=== PATIENT | female | born 1960 | race Caucasian/White ===

== ENCOUNTER 2018-07-12 06:33 | Inpatient (IN) | payer OTHER ==
[~2018-07-12] VITALS: Ht 157.5 cm; Wt 82.1 kg
[2018-07-12] VITALS (11 sets, daily range): BP systolic 104–128; BP diastolic 59–69
[~2018-07-12 06:33] MED LIST: ARMO250T2 PO; ATOR40TA PO; BIOT10004 PO; CALC-838 PO; FLUO40CA49 PO; LURA40TA PO; METH4TAB16 PO; TRIA80OI TP; VALS1TAB52 PO; VILA40TA PO; ZOLP10TA2 PO
[2018-07-12] MEDS ORDERED: CEFAZOLIN SODIUM/DEXTROSE,ISO 50 ML IV ONE (06:47)
[2018-07-12] MEDS ORDERED: oxyCODONE HCL SR 10MG TAB.SR.12H PO ONE (06:47)
[2018-07-12] MEDS ORDERED: CELECOXIB 100 MG CAPSULE ONE (06:47)
[2018-07-12] MEDS ORDERED: ACETAMINOPHEN 325 MG TABLET ONE (06:47)
[2018-07-12] MEDS ORDERED: TRANEXAMIC ACID 3,000 MG in SODIUM CHLORIDE IRRIG SOLUTION 70 ML IR ONE (07:00)
[2018-07-12] MEDS ORDERED: BUPIVACAINE MPF 0.5% W/EPI INJ 30 ML VIAL ONE (08:39)
[2018-07-12] MEDS ORDERED: KETOROLAC TROMETHAMINE INJ 30 MG/ML VIAL ONE (08:39)
[2018-07-12] MEDS ORDERED: BACITRACIN 50000 UNITS/VIAL ONE (08:39)
[2018-07-12] MEDS ORDERED: ROCURONIUM BROMIDE 50 MG/5 ML ONE (08:50)
[2018-07-12] MEDS ORDERED: HYDROMORPHONE INJ 2 MG/ML DISP.SYRIN ONE (08:50)
[2018-07-12] MEDS ORDERED: FENTANYL PF 100MCG/2ML AMPUL ONE (10:47)
[2018-07-12] MEDS ORDERED: ZOFRAN 4mg/2ML IV PRN (11:30)
[2018-07-12] MEDS ORDERED: SENOKOT 8.6 MG TABLET PO PRN (11:30)
[2018-07-12] MEDS ORDERED: HYDROCODONE/APAP 5/325MG 1 EACH TABLET PO PRN (11:30)
[2018-07-12] MEDS ORDERED: COLACE 100 MG CAPSULE PO PRN (11:30)
[2018-07-12] MEDS ORDERED: DULCOLAX 10 MG/SUPP.RECT RC PRN (11:30)
--- NOTE | 2018-07-12 11:30 | NUR ---
MS RN RECEIVED PT FROM OR RECEIVED PT VIA BED FROM OR NURSE PETE. PT IS S/P LEFT TOTAL HIP ARTHROPLASTY. PT SLEEPING BUT AROUSABLE, ALERT AND ORIENTED X3. DENIES N/V, CHEST PAIN, SOB. BREATHING IS EVEN AND UNLABORED ON 2L NC. VS ARE BP: 113/69, HR: 81, R: 16, SP02: 97%, T: 97.9. PT RATES PAIN 8/10 IN THE LOWER BACK, WILL ADMINISTER PAIN MEDICATION ORDERED. DRESSING ON THE LEFT HIP INCISION SITE IS CLEAN, DRY AND INTACT WITHOUT ANY SATURATION AT THIS TIME. ICE PACK AND ABDUCTOR PILLOW IN PLACE. R WRIST #18 G IV IS PATENT, CLEAN, DRY AND INTACT, WITHOUT REDNESS OR SWELLING. MCKINNEY CATHETER IS NOTED TO BE DRAINING CLEAR, YELLOW URINE, SCD ARE ON AND FUNCTIONAL. JULIA IS AT THE BEDSIDE. ORIENTED PT AND TO UNIT, INFORMED BOTH TO CALL FOR ASSISTANCE BEFORE GETTING UP. ALL NEEDS ATTENDED TO. BED IS LOCKED AND IN LOWEST POSITION, SIDE RAILS UP X2, CALL LIGHT IS WITHIN REACH. WILL CONTINUE TO MONITOR.
[2018-07-12] MEDS ORDERED: DOCUSATE SODIUM 250 MG CAPSULE PO PRN (12:00)
[2018-07-12] MEDS ORDERED: ERGO400C PO (12:12)
[2018-07-12] MEDS: HYDROMORPHONE 1 MG/1 ML DISP.SYRIN IV PRN ×2 (12:13→15:20)
[2018-07-12] MEDS: IV LR 1000 ML 1,000 ML IV PRN (12:24)
--- NOTE | 2018-07-12 13:55 | NUR ---
MS RN PT UP WITH PT PT UP WITH PT AT THIS TIME. RECEIVED DILAUDID 1 MG IV AT 1213. PT RATES PAIN 3/10 PRIOR TO WORKING WITH PT. WILL CONTINUE TO MONITOR.
--- NOTE | 2018-07-12 14:05 | NUR ---
MS RN PT PT ABLE TO STAND WITH PT ASSIST, STATED SHE FELT "DIZZY". PT WAS ASSISTED BACK TO BED. VS WNL, PT DENIES N/V OR SOB AT THIS TIME. WILL CONTINUE TO MONITOR.
[2018-07-12 15:57] LABS: CREATININE 0.8 mg/dL (0.6-1.3)
[2018-07-12 16:03] LABS: INR 0.98 (0.87-1.13)
[2018-07-12] MEDS: RIVAROXABAN 10 MG TABLET PO SCH (17:23)
[2018-07-12] MEDS: ANCEF 1 G in IV D5W 50 ML IV SCH (17:24)
--- NOTE | 2018-07-12 18:10 | NUR ---
MS [place] PT ROOM CHANGE PT MOVED FROM ROOM 316-1 TO 315-1. ALL BELONGS ACCOUNTED FOR.
--- NOTE | 2018-07-12 18:19 | NUR ---
MS RN CLOSING NOTE PT IN BED, SLEEPING AND EASILY AROUSABLE. ALERT AND ORIENTED X3, JULIA IS AT THE BEDSIDE. PT DENIES N/V, CHEST PAIN, SOB AT THIS TIME. PT RATES PAIN 6/10 AT THE LEFT HIP. 2 TABLETS OF NORCO 5-325 ADMINISTERED ORDERED. R WRIST #18G IV IS INFUSING LR @ 75ML/HR WITHOUT REDNESS OR SWELLING. LEFT HIP DRESSING IS CLEAN, DRY, AND INTACT AT THIS TIME. MCKINNEY CATHETER IS NOTED TO BE DRAINING CLEAR, YELLOW URINE. BED IS LOCKED AND IN LOWEST POSITION, SIDE RAILS UP X2, CALL LIGHT IS WITHIN REACH. WILL ENDORSE TO LOFT WORKER RN FOR CONTINUITY OF CARE.
--- NOTE | 2018-07-12 20:00 | NUR ---
MS/RN OPENING NOTES RECEIVED PATIENT IN BED, AWAKE, ALERT, OBSERVED GRIMACE AND GUARDING INFORMED PAIN MEDICATION ORDERED PER MD SQ TO BE GIVEN AND TO RECHECK PAIN MEDICATION WITH BREAK THROUGH PAIN BY MOUTH AND WILL KEEP PATIENT PAIN FREE PER PAIN MEDICATION WILL FOLLOW UP. PATIENT TOLERATED PROCEDURE, PROVIDED COMFORT MEASURES, ICE COLD WATER AND COOLING MEASURES.
[2018-07-12] MEDS ORDERED: HYDROMORPHONE INJ 2 MG/ML DISP.SYRIN SQ ONE (20:01)
[2018-07-12] MEDS: FAMOTIDINE (20 MG) 20 MG TABLET PO SCH (20:21)
[2018-07-12] MEDS ORDERED: PROMETHAZINE HCL 50 MG/ML AMPUL IM PRN (20:30)
[2018-07-12] MEDS ORDERED: ONDANSETRON HCL/PF 4 MG/2 ML VIAL IV PRN (20:30)
[2018-07-12] MEDS ORDERED: diphenhydrAMINE HCL 25 MG CAPSULE PO PRN (20:30)
[2018-07-12] MEDS: TYLENOL 650 MG TABLET PO PRN (21:18)
[2018-07-12] MEDS ORDERED: AMBIEN 5 MG TABLET PO PRN (22:00)
[2018-07-12] MEDS: MAG HYDROX/AL HYDROX/SIMETH 30 ML UDC PO PRN (22:58)
[2018-07-12] MEDS: oxyCODONE IR immediate release 5 MG PO PRN (22:59)
--- NOTE | 2018-07-12 22:59 | NUR ---
ms/rn notes patient reported abdominal discomfort, maalox was given, reported pain in surgery site and oxy 10 po given, level of 3/10 pain will monitor effectiveness.
[2018-07-13] MEDS: TYLENOL 650 MG TABLET PO PRN (01:17)
[2018-07-13] MEDS: oxyCODONE IR immediate release 5 MG PO PRN ×5 (01:41→23:02)
--- NOTE | 2018-07-13 01:41 | NUR ---
MS/RN NOTES PATIENT REPORTED MODERATE PAIN IN LEFT HIP SITE OF SURGERY NEEDED MEDICATION PER MD ORDER PROVIDED AND WILL MONITOR PAIN RELIEF
[2018-07-13] MEDS: ANCEF 1 G in IV D5W 50 ML IV SCH (02:02)
[2018-07-13] MEDS: IV LR 1000 ML 1,000 ML IV PRN ×2 (02:03→20:43)
--- NOTE | 2018-07-13 02:30 | NUR ---
MS/RN NOTES PATIENT REPORTED SEVERE PAIN IN LEFT HIP SITE, AT 06/26 WILL LENA MEDICATION FOR SEVERE PAIN VIA SUB Q. CALL LIGHTS TIFFANIE DOVE.
--- NOTE | 2018-07-13 02:38 | NUR ---
MS/RN NOTES B/P RECHECK AT 120/69, PULSE 63, FOR REPORTED SEVERE PAIN, WILL ADMINISTER SQ DILAUDID FOR NEEDED SEVERE PAIN, PATIENT ALERT, ORIENTED
[2018-07-13] MEDS: HYDROMORPHONE INJ 2 MG/ML DISP.SYRIN SQ PRN ×3 (02:42→18:44)
--- NOTE | 2018-07-13 06:30 | NUR ---
315-1 MS/RN NOTES PATIENT ABLE TO SLEEP ALEAST 5 TO 6 HOURS,ALERT, ORIENTED ON PAIN MANAGEMENT MONITORIG/CALL LIGHTS WITHIN REACH, BED IN LOCK POSITION
--- NOTE | 2018-07-13 06:35 | NUR ---
MS/RN NOTES PATIENT RESTING COMFORTABLY IN BED, REFUSED TO BE REPOSITIONED, REPORTED IN COMFORTABLE POSITION AND BVERBALIZED WILL COOPERTAE AND PARTICIPATE WITH PHYSICAL THERAPY,
--- NOTE | 2018-07-13 07:00 | NUR ---
MS RN OPENING NOTE RECEIVED PT IN BED, ALERT AND ORIENTED X3. DENIES N/V, CHEST PAIN, SOB AT THIS TIME. RATES PAIN IN THE LEFT HIP 4/10, DOES NOT WANT PAIN MEDICATION AT THIS TIME. BREATHING IS EVEN AND UNLABORED ON 2 L NC. R WRIST #18G IV IS INFUSING LR @ 125 ML/HR WITHOUT REDNESS OR SWELLING. MCKINNEY CATHETER NOTED TO BE DRAINING CLEAR, YELLOW URINE. SURGICAL DRESSING IS INTACT WITH SCANT SATURATION NOTED. ABDUCTOR PILLOW IN PLACE. ALL NEEDS ATTENDED TO, BED IS LOCKED AND IN LOWEST POSITION, SIDE RAILS UP X2, CALL LIGHT IS WITHIN REACH. WILL CONTINUE TO MONITOR.
[2018-07-13 08:00] VITALS: BP 105/69
[2018-07-13] MEDS ORDERED: ATORVASTATIN 40 MG TABLET PO SCH (09:00)
[2018-07-13] MEDS: VALSARTAN 80 MG TABLET PO SCH (09:00)
[2018-07-13] MEDS: FAMOTIDINE (20 MG) 20 MG TABLET PO SCH ×2 (09:10→21:25)
[2018-07-13] MEDS: FLUOXETINE HCL 20 MG CAPSULE PO SCH (09:10)
[2018-07-13] MEDS: HYDROCHLOROTHIAZIDE 25 MG TABLET PO SCH (09:11)
[2018-07-13 09:36] LABS: CALCIUM, SERUM 8.7 mg/dL (8.5-10.1); CREATININE 0.8 mg/dL (0.6-1.3); MAGNESIUM 1.8 mg/dL (1.8-2.4); POTASSIUM 3.3 mmol/L (3.5-5.1)
[2018-07-13 09:52] LABS: HEMATOCRIT 30 % (33-45); HEMOGLOBIN 10.5 g/dL (11.5-14.8); MEAN CORPUSCULAR VOLUME 84 fL (82-100); RED BLOOD CELL COUNT(AUTO) 3.64 MIL/uL (4.0-5.2); WHITE BLOOD COUNT (AUTO) 6.1 K/uL (4.3-11.0)
[2018-07-13 09:53] LABS: BASOPHILS % (AUTO) 0.6 % (0.0-2.0); EOSINOPHILS % (AUTO) 0.7 % (0.0-6.0); LYMPHOCYTES # (AUTO) 1.7 /CMM (0.8-4.8); MEAN CORPUSCULAR HGB CONC 35 g/dl (31.0-36.0); MONOCYTES # (AUTO) 0.5 /CMM (0.1-1.30); MONOCYTES % (AUTO) 7.6 % (2.0-12.0); NEUTROPHILS # (AUTO) 3.9 /CMM (1.8-8.9); NEUTROPHILS % (AUTO) 64.1 % (43.0-81.0); PLATELET COUNT (AUTO) 199 /CMM (150-450); RDW COEFFICIENT OF VARIATION 13.9 (11.5-15.0)
--- NOTE | 2018-07-13 10:15 | NUR ---
MS RN PT UP WITH PT PT UP WITH PT, UNABLE TO AMBULATE DUE TO FEELING "DIZZY". PT PROVIDED IN BED EXERCISES AND WILL COME BACK LATER. VS WNL. WILL CONTINUE TO MONITOR.
[2018-07-13] MEDS ORDERED: HYDROMORPHONE INJ 2 MG/ML DISP.SYRIN SQ ONE (13:02)
--- NOTE | 2018-07-13 14:15 | NUR ---
MS RN PT UP WITH PT PT UP WITH PT. UNABLE TO AMBULATE DUE TO FEELING "DIZZY" AND "SCARED OF FALLING". ENCOURAGED PT TO AMBULATE, ABLE TO DO TOE TOUCH EXERCISES. WILL CONTINUE TO MONITOR.
[2018-07-13] MEDS: MAG HYDROX/AL HYDROX/SIMETH 30 ML UDC PO PRN (14:42)
[2018-07-13 16:00] VITALS: BP 125/58
[2018-07-13] MEDS: RIVAROXABAN 10 MG TABLET PO SCH (16:22)
[2018-07-13] MEDS ORDERED: POTASSIUM CHLORIDE 20 MEQ TAB.PRT.SR PO ONE (16:30)
--- NOTE | 2018-07-13 18:42 | NUR ---
MS RN CLOSING NOTE PT IN BED, ALERT AND ORIENTED X 4, IS AT THE BEDSIDE. DENIES N/V, CHEST PAIN, SOB. BREATHING IS EVEN AND UNLABORED ON ROOM AIR, NEUROVASCULAR STATUS IS INTACT. PT RATES PAIN 8/10 IN THE LEFT HIP. WILL ADMINISTER DILAUDID 1 MG SUBQ ORDERED. DRESSING IS INTACT WITH SCANT SATURATION R WRIST #18G IV IS INFUSING LR @ 125 ML/HR WITHOUT REDNESS OR SWELLING. MCKINNEY NOTED TO BE DRAINING CLEAR, YELLOW URINE. ABDUCTOR PILLOW IS IN PLACE, SCDS ARE ON. D/C MCKINNEY AND FIRST DRESSING CHANGE BY MD IS SCHEDULED FOR TOMORROW, 07/14/18. BED IS LOCKED AND IN LOWEST POSITION, SIDE RAILS UP X2, CALL LIGHT AND POSSESSIONS ARE WITHIN REACH. WILL ENDORSE TO BUSINESS DEVELOPMENT CONSULTANT RN FOR CONTINUITY OF CARE.
--- NOTE | 2018-07-13 19:30 | NUR ---
RECEIVED PATIENT IN BED AWAKE, AO X 3, ABLE TO MAKE NEEDS KNOWN. NO ACUTE DISTRESS NOTED. MONITORED FOR PAIN. IV SITE PATENT, INTACT; IVF INFUSING ORDERED. LEFT HIP DRESSING INTACT. ABDUCTOR PILLOW IN PLACE BETWEEN LEGS. SAFETY REMINDERS GIVEN. ON LOW BED WITH BILATERAL UPPER SIDE RAILS UP. CALL WALLACE WITHIN EASY REACH. WILL CONTINUE TO MONITOR.
[2018-07-13 20:00] VITALS: BP 116/62
[2018-07-14] MEDS: oxyCODONE IR immediate release 5 MG PO PRN ×3 (04:52→15:47)
[2018-07-14] MEDS: IV LR 1000 ML 1,000 ML IV PRN ×3 (05:54→23:54)
--- NOTE | 2018-07-14 06:06 | NUR ---
PATIENT ASLEEP, EASILY AROUSABLE. RESPIRATIONS EVEN. NO SIGNS OF PAIN NOTED. DUE MEDS GIVEN WITH NO ASE NOTED. IVF INFUSING ORDERED. NEEDS ATTENDED. ABDUCTOR PILLOW IN PLACE. SAFETY PRECAUTIONS AND COMFORT MEASURES IN PLACE. WILL GIVE REPORT TO DAY SHIFT FOR CONTINUITY OF CARE.
--- NOTE | 2018-07-14 07:19 | NUR ---
MS RN OPENING NOTES RECEIVED PT LAYING IN BED WITH HOB SLIGHTLY ELEVATED, SLEEPING COMFORTABLY. PT IS EASILY AROUSABLE, A/O X4. RESPIRATIONS ARE EVEN AND UNLABORED, NOT IN ANY ACUTE DISTRESS NOTED. PT DENIES SOB, N/V. IV SITE TO R WRIST INTACT, NO INFILTRATION NOTED. DRESSING KEPT CLEAN AND DRY. IV FLUIDS INFUSING AT 125ML/HR, TOLERATING WELL. ABDUCTOR PILLOW IN PLACE WHILE IN BED. SAFETY MEASURES ARE IN PLACE. INSTRUCTED PT TO USE CALL LIGHT WHEN ASSISTANCE IS NEEDED, CALL LIGHT IS LEFT WITHIN REACH. WILL CONTINUE TO MONITOR THROUGHOUT SHIFT FOR CONTINUITY OF CARE.
[2018-07-14 08:00] VITALS: BP 118/70
[2018-07-14] MEDS: FLUOXETINE HCL 20 MG CAPSULE PO SCH (08:23)
[2018-07-14] MEDS: FAMOTIDINE (20 MG) 20 MG TABLET PO SCH ×2 (08:23→21:23)
[2018-07-14] MEDS: HYDROCHLOROTHIAZIDE 25 MG TABLET PO SCH (08:24)
[2018-07-14] MEDS: VALSARTAN 80 MG TABLET PO SCH (08:25)
[2018-07-14] MEDS: MAG HYDROX/AL HYDROX/SIMETH 30 ML UDC PO PRN (08:27)
--- NOTE | 2018-07-14 10:41 | NUR ---
MS RN NOTE-- REMOVED MCKINNEY CATHETER PER ORDERS, PT TOLERATED WELL. WILL CONTINUE TO MONITOR THROUGHOUT SHIFT. REMINDED PT TO USE CALL LIGHT WHEN ASSISTANCE IS NEEDED TO BSC.
--- NOTE | 2018-07-14 12:27 | NUR ---
MS RN NOTE-- PT C/O LEFT LEG "FEELING TWISTED." PER OT, SHE SAID THE SAME THING TO THEM. ASSISTED PT IN REPOSITIONING WITH THE HIP ABDUCTOR PILLOW. NOTIFIED SHANNAN HEREDIA IF XRAY IS NECESSARY. PER YAN, "NOT NECESSARY AT THIS TIME." WILL CONTINUE TO MONITOR.
[2018-07-14] MEDS: HYDROMORPHONE INJ 2 MG/ML DISP.SYRIN SQ PRN ×3 (12:56→20:37)
[2018-07-14 16:00] VITALS: BP 124/82
--- NOTE | 2018-07-14 16:22 | NUR ---
MS RN NOTES-- PT REFUSES TO WEAR DVT PUMPS. EXPLAINED THE IMPORTANCE OF DVT PUMPS, PT STILL NOTED WITH REFUSAL. ENCOURAGED PT TO CONTINUE PT/OT FOR MOBILITY AND STRENGTHENING.
[2018-07-14] MEDS: RIVAROXABAN 10 MG TABLET PO SCH (17:10)
--- NOTE | 2018-07-14 18:21 | NUR ---
MS RN CLOSING NOTES ALL DUE MEDS GIVEN, NEEDS MET AND ANTICIPATED. PT REMAINS A/O X4, AFEBRILE. RESPIRATIONS ARE EVEN AND UNLABORED, NOT IN ANY ACUTE DISTRESS NOTED. PT DENIES ANY CHEST PAIN, N/V, SOB. PUPILS ARE REACTIVE TO LIGHT, BILATERAL HAND COLLAR POINTER ARE STRONG AND EQUAL. PT ABLE TO MOVE TOES. PT REFUSES DVT PUMPS AT THIS TIME, EXPLAINED AGAIN THE IMPORTANCE TO HAVE THEM ON, PT STILL NOTED WITH REFUSAL. PT CURRENTLY ON XARELTO. NEW PERIPHERAL IV TO RFA G22 INTACT, NO INFILTRATION NOTED. DRESSING KEPT CLEAN AND DRY. IV FLUIDS RUNNING AT 125ML/HR, TOLERATING WELL. BEDSIDE COMMODE AT BEDSIDE. SAFETY MEASURES ARE IN PLACE. BED IS IN ITS LOWEST AND LOCKED POSITION. REMINDED PT TO USE CALL LIGHT WHEN ASSISTANCE IS NEEDED, CALL LIGHT IS LEFT WITHIN REACH. WILL ENDORSE TO NEXT SHIFT FOR CONTINUITY OF CARE.
--- NOTE | 2018-07-14 19:30 | NUR ---
MSRN EYES CLOSED, IVF INFUSING WELL. TO CONTINUE.
[2018-07-14 20:00] VITALS: BP 147/73
--- NOTE | 2018-07-14 20:40 | NUR ---
MSRN VERBALIZES SEVERED POST OP PAIN LEFT HIP, SITE WITH DRESSING D/I, WITH ICE PACK. NAUSEATED, NO EMESIS. ZOFRAN 4 MG IVP ADMINISTERED . DILAUDED 1MG IVP GIVEN FEW MINUTES AFTER, REPOSITIONED. PRESENT IVF INFUSING WELL VIA RIGHT FOREARM. KEPT COMFORTABLE, ALL NEEDS ATTENDED.
[2018-07-14] MEDS ORDERED: ATORVASTATIN 40 MG TABLET PO SCH (21:00)
--- NOTE | 2018-07-14 21:27 | NUR ---
MSRN DUE MEDS ADMINISTERED, NO COMPLAINTS MADE.
[2018-07-15] MEDS: MAG HYDROX/AL HYDROX/SIMETH 30 ML UDC PO PRN ×2 (00:46→08:27)
--- NOTE | 2018-07-15 01:58 | NUR ---
MS RN OPENING NOTE RECEIVE REPORT FROM NIGHT RN/PATIENT AWAKE IN BED, A/O X4 STABLE. NO SOB OR DISTRESS NOTED, CALL LIGHT WITHIN REACH. SAFETY MEASURES IMPLEMENTED. WILL CONTINUE TO MONITOR THROUGHOUT SHIFT.
--- NOTE | 2018-07-15 02:02 | NUR ---
MSRN REPORT GIVEN TO RN FOR CONTINUITY OF CARE
[2018-07-15] MEDS: oxyCODONE IR immediate release 5 MG PO PRN ×3 (05:24→17:50)
--- NOTE | 2018-07-15 06:37 | NUR ---
MS RN CLOSING NOTES ASLEEP AND EASILY AWAKEN, TOLERATING ROOM AIR 98%,STABLE, NOT IN DISTRESS. RESPIRATION EVEN AND UNLABORED. KEPT CLEAN AND DRY AND COMFORTABLE, ALL NURSING CARE RENDERED. NEEDS ATTENDED AND ANTICIPATED. NO COMPLAIN OF PAIN AT THIS TIME. L HIP INCISION DRESSING CLEAN AND INTACT, ON LOW BED AT ALL TIMES TO ENSURE SAFETY. SAFE HAZARD FREE ENVIRONMENT PROVIDED. CALL LIGHT WITHIN EASY TO REACH. WILL ENDORSE NEXT SHIFT CONTINUITY OF CARE.
--- NOTE | 2018-07-15 07:21 | NUR ---
MS RN OPENING NOTES PATIENT RECEIVED AWAKE IN BED IN NO ACUTE SIGNS OF DISTRESS. A/O X4. ABLE TO MAKE NEEDS KNOWN, NO C/O PAIN OR DISCOMFORTS VOICED AT THIS TIME. LEFT HIP INCISION SITE DRESSING C/D/I. ON ROOM AIR, TOLERATING WELL WITH NO SOB NOTED. IV ACCESS ON RFA INTACT AND PATENT, IVF OF LR @ 125 ML/HR INFUSING, NO S/S OF INFILTRATIONS NOTED. BED LOCKED AND IN LOWEST POSITION WITH SIDE-RAILS UP X2. CALL LIGHT IN REACH. WILL CONTINUE TO MONITOR.
[2018-07-15 08:00] VITALS: BP 122/74
[2018-07-15] MEDS: FAMOTIDINE (20 MG) 20 MG TABLET PO SCH (08:20)
[2018-07-15] MEDS: FLUOXETINE HCL 20 MG CAPSULE PO SCH (08:20)
[2018-07-15] MEDS: VALSARTAN 80 MG TABLET PO SCH (08:20)
[2018-07-15] MEDS: HYDROCHLOROTHIAZIDE 25 MG TABLET PO SCH (08:21)
--- NOTE | 2018-07-15 13:45 | NUR ---
RN NOTES/ PAIN MANAGEMENT PATIENT C/O PAIN ON HER RIGHT HIP AFTER OOB FROM BED TO BSC WITH SCALE OF 6/10. PRN OXY IR 15MG GIVEN ORDERED. WILL CONTINUE TO MONITOR.
[2018-07-15 16:00] VITALS: BP 114/70
[2018-07-15] MEDS ORDERED: RIVA10TA PO (16:43)
[2018-07-15] MEDS: RIVAROXABAN 10 MG TABLET PO SCH (17:25)
--- NOTE | 2018-07-15 17:51 | NUR ---
RN NOTES/ PAIN MANAGEMENT PATIENT C/O PAIN ON HER RIGHT HIP WITH SCALE OF 7/10. PRN OXY IR 15MG GIVEN AT 1750. WILL CONTINUE TO MONITOR.
--- NOTE | 2018-07-15 18:21 | NUR ---
RN NOTES PATIENT FOR DISCHARGE TONIGHT TO [facility]. CALLED AND REPORT GIVEN TO NURSE GEE. PT CALLED HER AND INFORMED OF HER TRANSF[facility] AT [facility].
--- NOTE | 2018-07-15 19:23 | NUR ---
MS RN CLOSING NOTES PATIENT IN BED AWAKE AND LYING AT MODERATE HIGH BACKREST POSITION. A/O X4. ABLE TO MAKE NEEDS KNOWN. LEFT HIP INCISION SITE DRESSING C/D/I. ALL NEEDS AND CARE ATTENDED WELL. ON ROOM AIR, TOLERATING WELL WITH NO SOB NOTED. IV ACCESS ON RFA INTACT AND PATENT, FLUSHES WELL. ALL SAFETY MEASURES KEPT IN PLACE. BED LOCKED AND IN LOWEST POSITION WITH SIDE-RAILS UP X2. CALL LIGHT IN REACH. PT FOR DISCHARGED TO [facility], PICK-UP TIME IS 1999. ENDORSED TO CRYSTALIZER TENDER NURSE.
--- NOTE | 2018-07-15 19:30 | NUR ---
RN INITIAL NOTES Received patient laying in bed, alert, oriented x 4. Breathing even and unlabored. Not in any distress. No complaints as of this time. Patient for discharge. As per morning RN, report already given to [facility]. A/W ambulance.
--- NOTE | 2018-07-15 20:50 | NUR ---
RN NOTES Patient picked up by [facility] people, discharged to [facility]. Heplock and arm band taken out. Discharge papers given to [facility] personnel.
== END 2018-07-15 20:50 | DRG 470 ==
LOC: DS 06:33 → MED 10:31
PROVIDERS: ADMIT Specialist; ATTEND Hospitalist
PROC: 0SRB0JZ Replacement of Left Hip Joint with Synthetic Substitute, Open Approach (ICD-10-PCS; principal; 2018-07-12 10:30)
DX: M16.12 Unilateral primary osteoarthritis, left hip (principal); I10 Essential (primary) hypertension; E78.5 Hyperlipidemia, unspecified; E66.9 Obesity, unspecified; E87.6 Hypokalemia; F32.9 Major depressive disorder, single episode, unspecified; G47.00 Insomnia, unspecified; Z96.651 Presence of right artificial knee joint; Z68.33 Body mass index [BMI] 33.0-33.9, adult
CPT/HCPCS: 36415; 80048-TC; 82565-TC; 83735-TC; 84100-TC; 84520-TC; 85025-TC; 85027-TC; 85610-TC; 86850-TC; 86921-TC; 87081-TC; 97110-TC; 97116-TC; 97530-TC; A4217; A6209; A6402; J0690; J1100; J1170; J1885; J2405; J2550; J2704; J2710; J3010; J3490; J7060; J7120; Z7610

== ENCOUNTER 2018-07-19 20:27 | Inpatient (IN) | payer OTHER ==
[~2018-07-19] VITALS: Ht 157.5 cm; Wt 86.2 kg
[~2018-07-19 20:27] MED LIST changes: -CALC-838 PO; +ERGO400C PO; -METH4TAB16 PO; +RIVA10TA PO; -TRIA80OI TP; -VILA40TA PO
--- NOTE | 2018-07-19 20:27 | NUR ---
ALISSON FROM [facility] FOR LEFT HIP DISCOMFORT. PER PT, DR CELESTE DID SX AND IS AWARE OF TRANSFER OF PATIENT TO THIS FACILITY. VSS NO ACUTE DISTRESS AT THIS TIME. PT IS ALERT AND ORIENTED X4 ABLE TO MAKE NEEDS KNOWN. WILL CONTINUE TO MONITOR FOR ANY CHANGES DURING THE SHIFT.
--- NOTE | 2018-07-19 20:28 | NUR ---
ER MD PATEL AT BEDSIDE FOR EVAL
--- NOTE | 2018-07-19 21:08 | NUR ---
NURSING INSTRUCTOR AT BEDSIDE
--- NOTE | 2018-07-19 21:08 | NUR ---
BLOOD SENT TO LAB WITH [facility] LIGHT
[2018-07-19 21:10] LABS: BASOPHILS # (AUTO) 0.1 /CMM (0.0-0.2); BASOPHILS % (AUTO) 1.1 % (0.0-2.0); EOSINOPHILS % (AUTO) 1.9 % (0.0-6.0); HEMATOCRIT 32 % (33-45); HEMOGLOBIN 10.9 g/dL (11.5-14.8); LYMPHOCYTES # (AUTO) 2.2 /CMM (0.8-4.8); LYMPHOCYTES % (AUTO) 24.1 % (20.0-44.0); MEAN CORPUSCULAR HGB CONC 34 g/dl (31.0-36.0); MEAN CORPUSCULAR VOLUME 82 fL (82-100); MONOCYTES # (AUTO) 0.7 /CMM (0.1-1.30); MONOCYTES % (AUTO) 7.5 % (2.0-12.0); NEUTROPHILS % (AUTO) 65.4 % (43.0-81.0); PLATELET COUNT (AUTO) 349 /CMM (150-450); RDW COEFFICIENT OF VARIATION 12.8 (11.5-15.0); RED BLOOD CELL COUNT(AUTO) 3.85 MIL/uL (4.0-5.2); WHITE BLOOD COUNT (AUTO) 9.2 K/uL (4.3-11.0)
[2018-07-19] MEDS ORDERED: PROPOFOL 20 ML IV ONE (21:12)
[2018-07-19 21:33] LABS: CALCIUM, SERUM 9.6 mg/dL (8.5-10.1); CREATININE 0.7 mg/dL (0.6-1.3); POTASSIUM 3.5 mmol/L (3.5-5.1)
[2018-07-19 21:34] LABS: INR 0.98 (0.87-1.13)
--- NOTE | 2018-07-19 21:42 | NUR ---
ER MD PATEL PREPARING FOR REDUCTION OF LEFT HIP. AWAITING TEAM FOR FINAL PREP
--- NOTE | 2018-07-19 21:55 | NUR ---
PRE REDUCTION VITALS 135/82 72 97% 20R
--- NOTE | 2018-07-19 21:55 | NUR ---
ER MD PATEL, RT, RN LACEY, JENNY BONNER AT BEDSIDE FOR REDUCTION OF LEFT HIP
--- NOTE | 2018-07-19 21:56 | NUR ---
100MG IVP MARYURI BY JENNY TRIANA 72 100% 22R 137/69 Addendum: 07/19/18 at 2227 by ELIANA MELBA
--- NOTE | 2018-07-19 22:00 | NUR ---
30MG DIPRIVAN IVP BY JENNY PATEL
--- NOTE | 2018-07-19 22:01 | NUR ---
INTRA PROCEDURE VITALS 66 99% 120/85 22R
--- NOTE | 2018-07-19 22:01 | NUR ---
20MG DIPRIVAN IVP BY JENNY PATEL
--- NOTE | 2018-07-19 22:04 | NUR ---
20MG IVP DIPRIVAN GIVEN BY ER MD PATEL VITALS 66 100% 13R 111/65
--- NOTE | 2018-07-19 22:06 | NUR ---
POST PROCEDURE VITALS 70 100% 114/66 R17
[2018-07-19] MEDS ORDERED: HYDROCODONE/APAP 5/325MG 1 EACH TABLET ONE (22:33)
[2018-07-19] MEDS ORDERED: PROPOFOL 200 MG/20 ML VIAL IV ONE (23:00)
[2018-07-19] MEDS ORDERED: HYDROCODONE/APAP 5/325MG 1 EACH TABLET PO STA (23:12)
[2018-07-19 23:15] VITALS: BP 127/76
[2018-07-19 23:30] VITALS: BP 127/76
--- NOTE | 2018-07-19 23:30 | NUR ---
MS BOBBIN HANDLER NOTES RECEIVED FROM ER PER MARIANA,A/O X4 ACCOMPANIED BY UNDER THE SERVICE OF DR WOMACK,DX: DISLOCATED FRACTURE.S/P CLOSED REDUCTION LEFT HIP IN ER,BUT UNABLE TO FIX IT.PER SHE WAS HERE TWO WEEKS AGO FOR HIP REPLACEMENT AND [facility].WHILE ON REHAB,SHE"S EXPERIENCING CONTINUOS HIP DISCOMFORTS AND THATS THE REASON SHE WAS BROUGHT HERE.NPO ORDERED.BED ON LOWEST POSITION AND LOCKED.CALL LIGHT IN REACH,NEEDS ANTICIPATED.
[2018-07-20] MEDS ORDERED: MAG HYDROX/AL HYDROX/SIMETH 30 ML UDC PO PRN
[2018-07-20] MEDS ORDERED: Z GUARD REMEDY 2 OZ OINT TP PRN
[2018-07-20] MEDS ORDERED: MAGNESIUM HYDROXIDE 30 ML UDC PO PRN
[2018-07-20] MEDS ORDERED: ONDANSETRON HCL/PF 4 MG/2 ML VIAL IVP PRN
[2018-07-20] MEDS ORDERED: ACETAMINOPHEN 325 MG TABLET PO PRN
[2018-07-20] MEDS ORDERED: MORPHINE SULFATE INJ 2 MG/ML DISP.SYRIN IV PRN
[2018-07-20] MEDS: MORPHINE SULFATE INJ 4 MG/ML DISP.SYRIN IV PRN ×5 (00:30→19:51)
--- NOTE | 2018-07-20 00:30 | NUR ---
MS RN NOTES PAIN MANAGEMENT C/O PAIN LEFT HIP 8/10 ON PAIN SCALE,MEDICATED WITH MORPHINE 2MG IV ORDERED
[2018-07-20] MEDS: IV D5/0.45 NACL 1,000 ML IV PRN ×2 (00:37→16:49)
--- NOTE | 2018-07-20 00:37 | NUR ---
MS RN NOTES STARTED ON IVF D5 1/2 NS AT 75ML/HR RATE ORDERED
--- NOTE | 2018-07-20 04:15 | NUR ---
MS RN NOTES REFUSED MCKINNEY INSERTION.SHE WANTS IT IN OPERATING ROOM WHEN SHE'S KNOCK OUT
--- NOTE | 2018-07-20 04:22 | NUR ---
MS RN NOTES PAIN MANAGEMENT AWAKE,C/O LEFT HIP PAIN 8/10 ON PAIN SCALE.MORPHINE 2MG IV GIVEN ORDERED
--- NOTE | 2018-07-20 05:02 | NUR ---
MS TINOCO NOTES REFUSED MCKINNEY INSERTION.SHE WANTS IT IN OR WHEN SHE'S KNOCK OUT Addendum: 07/20/18 at 0503 by JERAD ROSS RN Amended: Links added.
--- NOTE | 2018-07-20 06:16 | NUR ---
MS RN NOTES KEPT NPO AFTER MIDNIGHT.CONSENT SIGNED FOR CLOSED REDUCTION OF LEFT TOTAL HIP.IVF REMAINS PATENT.IN NO ACUTE DISTRESS.WILL ENDORSE TO DAY NURSE FOR AKUA.
[2018-07-20 07:37] LABS: BASOPHILS % (AUTO) 0.4 % (0.0-2.0); EOSINOPHILS % (AUTO) 1.7 % (0.0-6.0); HEMATOCRIT 30 % (33-45); HEMOGLOBIN 9.8 g/dL (11.5-14.8); LYMPHOCYTES # (AUTO) 1.7 /CMM (0.8-4.8); LYMPHOCYTES % (AUTO) 18.2 % (20.0-44.0); MEAN CORPUSCULAR HGB CONC 32 g/dl (31.0-36.0); MEAN CORPUSCULAR VOLUME 85 fL (82-100); MONOCYTES # (AUTO) 0.7 /CMM (0.1-1.30); NEUTROPHILS # (AUTO) 6.7 /CMM (1.8-8.9); NEUTROPHILS % (AUTO) 71.7 % (43.0-81.0); PLATELET COUNT (AUTO) 320 /CMM (150-450); RDW COEFFICIENT OF VARIATION 13.9 (11.5-15.0); RED BLOOD CELL COUNT(AUTO) 3.56 MIL/uL (4.0-5.2); WHITE BLOOD COUNT (AUTO) 9.3 K/uL (4.3-11.0)
--- NOTE | 2018-07-20 07:37 | NUR ---
MS RN OPENING NOTES RECEIVED PT FROM NIGHTSHIFT NURSE IN STABLE CONDITION. PT IS A/O X4. NO SOB OR ACUTE SIGNS OF DISTRESS NOTED. RESPIRATIONS EVEN AND UNLABORED. PT ON RA AND SATING WELL. SHE DENIES PAIN AT THIS TIME STATING THAT SHE IS "COMFORTABLE" AFTER RECEIVING PAIN MEDICATION. NO MCKINNEY INSERTED ACCORDING TO NIGHTSHIFT NURSE PT PREFERS IT INSERTED ONCE IN THE OR. NPO STATUS MAINTAINED PT' IS SCHEDULED FOR A CLOSED REDUCTION OF THE LEFT HIP AROUND 1400. PT NOTIFIED OF TIME OF PROCEDURE AND EDUCATED ON THE IMPORTANCE OF REMAINING NPO. SHE VERBALIZED FULL UNDERSTANDING. IV YO LEFT HAND NOTED TO BE PATENT AND INTACT. NO REDNESS OR SIGNS OF INFILTRATION NOTED. PT TOLERATING IV INFUSION WELL. BED IN LOW LOCKED POSITION, SIDE RAILS UP X2, CALL LIGHT WITHIN PT'S REACH. WILL CONTINUE TO MONITOR
[2018-07-20 08:00] VITALS: BP 131/75
[2018-07-20 08:03] LABS: CREATININE 0.6 mg/dL (0.6-1.3); MAGNESIUM 2.2 mg/dL (1.8-2.4); PHOSPHORUS 3.7 mg/dL (2.5-4.9); POTASSIUM 3.7 mmol/L (3.5-5.1)
[2018-07-20] MEDS: ATORVASTATIN 40 MG TABLET PO SCH (08:54)
[2018-07-20] MEDS: FLUOXETINE HCL 20 MG CAPSULE PO SCH (08:54)
[2018-07-20] MEDS: HYDROCHLOROTHIAZIDE 25 MG TABLET PO SCH (09:00)
[2018-07-20] MEDS ORDERED: Medication Not On Formulary EA (Valsartan/Hydrochlorothiazide (Diovan Hct 320-12.5 Mg Ta PO SCH (09:00)
[2018-07-20] MEDS: VALSARTAN 80 MG TABLET PO SCH (09:00)
--- NOTE | 2018-07-20 14:21 | NUR ---
PT TAKEN DOWN TO OR IN STABLE CONDITION.
[2018-07-20] MEDS ORDERED: SUCCINYLCHOLINE CHLORIDE 20 MG/ML VIAL ONE (14:41)
[2018-07-20] MEDS ORDERED: HYDROMORPHONE INJ 2 MG/ML DISP.SYRIN ONE (15:01)
--- NOTE | 2018-07-20 15:49 | NUR ---
MS RN POST OP NOTES: RECEIVED PT FROM OR NURSE IN STABLE CONDITION POST PROCEDURE. ABDUCTION PILLOW NOTED. ORDERS REVIEWED AND NOTED BY . VSS. WILL CONTINUE TO MONITOR
[2018-07-20 16:00] VITALS: BP 121/64
[2018-07-20] MEDS: HYDROCODONE/APAP 5/325MG 1 EACH TABLET PO PRN (17:12)
--- NOTE | 2018-07-20 17:55 | NUR ---
MS RN NOTES: LATUDA HOME MEDICATION PT ABLE TO PROVIDE LATUDA MEDICATION. MEDICATION SENT TO PHARMACY
--- NOTE | 2018-07-20 18:20 | NUR ---
MS RN CLOSING NOTES PT REMAINS STABLE. ALL NEEDS WERE MET DURING SHIFT AND ORDERS CARRIED OUT ACCORDINGLY ALL DUE MEDS GIVEN. VITALS STABLE POST PROCEDURE. ABDUCTION PILLOW REMAINS IN PLACE. PT DENIES PAIN AT THIS TIME. IV REMAINS PATENT AND INTACT. PT CONTINUES TO TOLERATE IV INFUSION WELL. SAFETY MEASURES REMAIN IN PLACE. WILL [id number] TO NIGHTSHIFT NURSE FOR AKUA
--- NOTE | 2018-07-20 19:35 | NUR ---
RN NOTE; RECEIVED PT IN BED AWAKE AND ALERT, BREATHING EVENLY. NO SOB. NAD .SKIN WARM AND DRY. DRESSING , IMMOBILIZER AND ABDUCTOR PILLOW IN PLACE. WITH C/O LLE PAIN . ICE PACK APPLIED. TO BE MEDICATED. NEEDS ATTENDED . BED LOW LOCKED. CALL LIGHT WITHIN REACH. WILL CONT TO MONITOR,
--- NOTE | 2018-07-20 19:57 | NUR ---
morphine given as ordered for c/o severe l leg pain. will cont to monitor ,
[2018-07-20 20:00] VITALS: BP 109/56
[2018-07-20] MEDS: ENOXAPARIN SODIUM 40 MG/0.4 ML DISP.SYRIN SQ SCH ×2 (21:17)
[2018-07-20] MEDS: ZOLPIDEM TARTRATE 5 MG TABLET PO PRN (21:18)
--- NOTE | 2018-07-20 21:18 | NUR ---
addyien given as ordered for c/o insomnia. will cont to monitor
[2018-07-21] MEDS: MORPHINE SULFATE INJ 4 MG/ML DISP.SYRIN IV PRN (01:22)
--- NOTE | 2018-07-21 01:24 | NUR ---
morphine given as ordered for c/o severe l leg pain. will cont to monitor ,
[2018-07-21] MEDS: IV D5/0.45 NACL 1,000 ML IV PRN (06:07)
[2018-07-21 06:36] LABS: BASOPHILS % (AUTO) 0.5 % (0.0-2.0); HEMATOCRIT 31 % (33-45); HEMOGLOBIN 9.9 g/dL (11.5-14.8); LYMPHOCYTES # (AUTO) 1.6 /CMM (0.8-4.8); LYMPHOCYTES % (AUTO) 19.7 % (20.0-44.0); MEAN CORPUSCULAR HGB CONC 33 g/dl (31.0-36.0); MEAN CORPUSCULAR VOLUME 86 fL (82-100); MONOCYTES # (AUTO) 0.8 /CMM (0.1-1.30); MONOCYTES % (AUTO) 9.3 % (2.0-12.0); NEUTROPHILS # (AUTO) 5.6 /CMM (1.8-8.9); NEUTROPHILS % (AUTO) 68.5 % (43.0-81.0); PLATELET COUNT (AUTO) 326 /CMM (150-450); RED BLOOD CELL COUNT(AUTO) 3.56 MIL/uL (4.0-5.2); WHITE BLOOD COUNT (AUTO) 8.2 K/uL (4.3-11.0)
--- NOTE | 2018-07-21 06:42 | NUR ---
PT IN BED SLEEPING AROUSES EASILY. BREATHING EVENLY. NO SOB. NO ACUTE EVENT DURING THE NIGHT. PAIN MEDICATION GIVEN ORDERED PER PT'S REQUEST . EFFECTIVE. IMMOBILIZER AND ABDUCTOR PILLOW IN PLACE . ASSISTED WITH ADLS. BED LOW LOCKED.CALL LIGHT WITHIN REACH., WILL CONT TO MONITOR AND WILL ENDORSE TO AM SHIFT FOR AKUA.
[2018-07-21 06:57] LABS: CALCIUM, SERUM 8.9 mg/dL (8.5-10.1); CREATININE 0.6 mg/dL (0.6-1.3); POTASSIUM 3.7 mmol/L (3.5-5.1)
--- NOTE | 2018-07-21 07:59 | NUR ---
MS RN OPENING NOTES RECEIVED PT FROM NIGHTSHIFT NURSE IN STABLE CONDITION. PT IS A/O X4. NO SOB OR ACUTE SIGNS OF DISTRESS NOTED. RESPIRATIONS EVEN AND UNLABORED. PT ON RA AND SATING WELL. SHE DENIES PAIN AT THIS TIME. ABDUCTION PILLOW NOTED IN PLACE. IV TO LEFT HAND NOTED TO BE PATENT AND INTACT. NO REDNESS OR SIGNS OF INFILTRATION NOTED. PT TOLERATING IV INFUSION WELL. BED IN LOW LOCKED POSITION, SIDE RAILS UP X2, CALL LIGHT WITHIN PT'S REACH. WILL CONTINUE TO MONITOR
[2018-07-21 08:00] VITALS: BP 134/69
[2018-07-21] MEDS: FLUOXETINE HCL 20 MG CAPSULE PO SCH (08:58)
[2018-07-21] MEDS: HYDROCHLOROTHIAZIDE 25 MG TABLET PO SCH (08:59)
[2018-07-21] MEDS: ATORVASTATIN 40 MG TABLET PO SCH (09:00)
[2018-07-21] MEDS ORDERED: TRAMADOL HCL 50 MG TABLET PO PRN (09:00)
[2018-07-21] MEDS: VALSARTAN 80 MG TABLET PO SCH (09:00)
[2018-07-21] MEDS ORDERED: TRAM50TA2 PO (11:47)
[2018-07-21] MEDS ORDERED: HYDR-3972 PO (11:47)
[2018-07-21] MEDS: HYDROCODONE/APAP 5/325MG 1 EACH TABLET PO PRN ×2 (14:50→19:54)
[2018-07-21 16:00] VITALS: BP 131/75
--- NOTE | 2018-07-21 18:27 | NUR ---
MS RN CLOSING NOTES PT REMAINS STABLE. ALL NEEDS WERE MET DURING SHIFT AND ORDERS CARRIED OUT ACCORDINGLY ALL DUE MEDS GIVEN. ABDUCTION PILLOW REMAINS IN PLACE. PT DENIES PAIN AT THIS TIME. IV REMAINS PATENT AND INTACT. IV INFUSION OFF AT THIS TIME PER PT'S REQUEST. SAFETY MEASURES REMAIN IN PLACE. WILL ENDORSE TO NIGHTSHIFT NURSE FOR AKUA
--- NOTE | 2018-07-21 19:28 | NUR ---
RN CLOSING NOTES RECEIVED PT IN BED, ALERT AND ORIENTED X 4, EATING PUDDING, IN NO ACUTE DISTRESS. PT VERBALIZED SOME DISCOMFORT WITH PAIN LEVEL 4/10, NO SOB, KEPT PT COMFORTABLE, NEEDS ATTENDED TO, PATIENT REFUSED IV HYDRATION. EXPLAINED RISKS AND BENEFITS TO PATIENT BUT CONTINUES TO REFUSE. PLACED CALL LIGHT WITHIN REACH AND PLACED BED IN LOW POSITION AND LOCKED IN PLACE. ABDUCTION PILLOW IN PLACE. WILL CONTINUE TO MONITOR. Addendum: 07/21/18 at 2032 by ZI VELASQUEZ RN RN OPENING NOTES RECEIVED PT IN BED, ALERT AND ORIENTED X 4, EATING PUDDING, IN NO ACUTE DISTRESS. PT VERBALIZED SOME DISCOMFORT WITH PAIN LEVEL 4/10, NO SOB, KEPT PT COMFORTABLE, NEEDS ATTENDED TO, PATIENT REFUSED IV HYDRATION. EXPLAINED RISKS AND BENEFITS TO PATIENT BUT CONTINUES TO REFUSE. PLACED CALL LIGHT WITHIN REACH AND PLACED BED IN LOW POSITION AND LOCKED IN PLACE. ABDUCTION PILLOW IN PLACE. WILL CONTINUE TO MONITOR.
[2018-07-21 20:00] VITALS: BP 121/78
[2018-07-21] MEDS: ENOXAPARIN SODIUM 40 MG/0.4 ML DISP.SYRIN SQ SCH (21:45)
[2018-07-21] MEDS: ZOLPIDEM TARTRATE 5 MG TABLET PO PRN (21:52)
[2018-07-21] MEDS ORDERED: ATORVASTATIN 40 MG TABLET PO SCH (22:00)
[2018-07-22] MEDS: IV D5/0.45 NACL 1,000 ML IV PRN (02:12)
--- NOTE | 2018-07-22 06:28 | NUR ---
RN CLOSING NOTES PATIENT IN BED, ALERT AND ORIENTED X 4, NO SOB NOTED AND IN NO ACUTE DISTRESS. ALL PATIENT'S NEEDS ATTENDED TO THROUGHOUT THE SHIFT, DUE MEDICATION GIVEN. ABDUCTION PILLOW IN PLACE, IMMOBILIZER IN PLACE. CALL LIGHT WITHIN EASY REACH. BED IN LOW POSITION NAD LOCKED IN PLACE. WILL ENDORSE TO AM SHIFT NURSE FOR CONTINUITY OF CARE.
--- NOTE | 2018-07-22 07:32 | NUR ---
RN OPENING NOTES RECEIVED PT. PT STABLE AND SLEEPING IN BED. O2 SAT WNL. PT DOES NOT APPEAR TO BE IN PAIN. IV ACCESS LOCATED ON L HAND 20G WITH ORDERS TO INFUSE D5 1/2 NS AT 75 ML/HR, HOWEVER PT REFUSING IV HYDRATION. PER FINE PATCHER REPORT PT TO BE D/C TO [facility] TODAY. D/C ORDER PLACED, WILL F/U WITH CM FOR MASH TUB COOKER TIME. SAFETY MEASURES IN PLACE, CALL LIGHT WITHIN REACH. WILL CONTINUE TO MONITOR.
[2018-07-22 08:00] VITALS: BP 131/77
[2018-07-22] MEDS: FLUOXETINE HCL 20 MG CAPSULE PO SCH (08:17)
[2018-07-22] MEDS: VALSARTAN 80 MG TABLET PO SCH (08:19)
[2018-07-22 09:00] VITALS: BP 122/62
[2018-07-22] MEDS: HYDROCHLOROTHIAZIDE 25 MG TABLET PO SCH (09:00)
--- NOTE | 2018-07-22 18:48 | NUR ---
DISCHARGE NOTE PT DISCHARGED TO [facility]. NO S/S OF RESP DISTRESS/SOB. NO C/O PAIN. MED RECON PRINTED AND COMPLETED. D/C TEACHING PERFORMED, PT VERBALIZES UNDERSTANDING. DC INSTRUCTIONS/BELONGINGS SHEET SIGNED, COPIED, PLACED IN CHART. ID BAND AND IV ACCESS REMOVED. PT REFUSED WOUND PHOTO DOCUMENTATION. STABLE UPON DC. LEFT HOSPITAL WITH [facility] IN [facility].
[2018-07-25] MEDS ORDERED: HYDR-552 PO (17:50)
== END 2018-07-22 13:30 | DRG 560 ==
LOC: ER 20:30 → MED 23:06
PROVIDERS: ADMIT Internal Medicine; ATTEND Internal Medicine
PROC: 0SWSXJZ Revision of Synthetic Substitute in Left Hip Joint, Femoral Surface, External Approach (ICD-10-PCS; principal; 2018-07-20 14:00)
DX: T84.021A Dislocation of internal left hip prosthesis, initial encounter (principal); E87.1 Hypo-osmolality and hyponatremia; E66.9 Obesity, unspecified; Z68.34 Body mass index [BMI] 34.0-34.9, adult; G47.00 Insomnia, unspecified; E78.5 Hyperlipidemia, unspecified; I10 Essential (primary) hypertension; Y83.9 Surgical procedure, unspecified as the cause of abnormal reaction of the patient, or of later complication, without mention of misadventure at the time of the procedure; Y92.89 Other specified places as the place of occurrence of the external cause; M19.90 Unspecified osteoarthritis, unspecified site; Z96.659 Presence of unspecified artificial knee joint; Z88.2 Allergy status to sulfonamides; D63.8 Anemia in other chronic diseases classified elsewhere; E86.1 Hypovolemia
CPT/HCPCS: 36415; 71045-TC; 73020; 73502; 80048-TC; 83735-TC; 84100-TC; 85025-TC; 85730-TC; 87081-TC; 97110-TC; 97112-TC; 97530-TC; A4606; J0330; J1170; J1650; J2270; J2704; J3490; Z7610

== ENCOUNTER 2018-07-25 15:51 | Inpatient (IN) | payer OTHER ==
[~2018-07-25] VITALS: Ht 157.5 cm; Wt 93.0 kg
[~2018-07-25 15:51] MED LIST changes: +HYDR-3972 PO; +TRAM50TA2 PO
[2018-07-25] MEDS ORDERED: ONDANSETRON HCL/PF 4 MG/2 ML VIAL IV ONE (16:30)
[2018-07-25] MEDS ORDERED: MORPHINE SULFATE INJ 2 MG/ML DISP.SYRIN IV ONE (16:30)
[2018-07-25] MEDS ORDERED: MORPHINE SULFATE INJ 4 MG/ML DISP.SYRIN ONE (16:35)
[2018-07-25] MEDS ORDERED: ONDANSETRON HCL/PF 4 MG/2 ML VIAL ONE (16:35)
[2018-07-25 16:53] LABS: BASOPHILS % (AUTO) 0.5 % (0.0-2.0); HEMATOCRIT 33 % (33-45); LYMPHOCYTES # (AUTO) 1.7 /CMM (0.8-4.8); LYMPHOCYTES % (AUTO) 21.3 % (20.0-44.0); MEAN CORPUSCULAR HGB CONC 34 g/dl (31.0-36.0); MEAN CORPUSCULAR VOLUME 83 fL (82-100); MONOCYTES # (AUTO) 0.6 /CMM (0.1-1.30); MONOCYTES % (AUTO) 7.7 % (2.0-12.0); NEUTROPHILS # (AUTO) 5.4 /CMM (1.8-8.9); NEUTROPHILS % (AUTO) 68.5 % (43.0-81.0); PLATELET COUNT (AUTO) 464 /CMM (150-450); RDW COEFFICIENT OF VARIATION 12.8 (11.5-15.0); RED BLOOD CELL COUNT(AUTO) 3.96 MIL/uL (4.0-5.2); WHITE BLOOD COUNT (AUTO) 7.9 K/uL (4.3-11.0)
[2018-07-25 17:03] LABS: CALCIUM, SERUM 9.4 mg/dL (8.5-10.1); CREATININE 0.6 mg/dL (0.6-1.3); POTASSIUM 3.4 mmol/L (3.5-5.1)
[2018-07-25 17:07] LABS: INR 0.99 (0.85-1.15)
[2018-07-25] MEDS ORDERED: DOCU100C36 PO (17:50)
[2018-07-25] MEDS ORDERED: TRAM50TA2 PO (17:50)
[2018-07-25] MEDS ORDERED: VALS320T2 PO (17:50)
[2018-07-25] MEDS ORDERED: HYDR-4384 PO (17:50)
[2018-07-25] MEDS ORDERED: RIVA10TA PO (17:50)
[2018-07-25] MEDS ORDERED: HYDR12.55 PO (17:50)
[2018-07-25] MEDS ORDERED: MAGNESIUM HYDROXIDE 30 ML UDC PO PRN (18:30)
[2018-07-25] MEDS ORDERED: Z GUARD REMEDY 2 OZ OINT TP PRN (18:30)
[2018-07-25] MEDS ORDERED: MORPHINE SULFATE INJ 4 MG/ML DISP.SYRIN IV PRN (18:30)
[2018-07-25] MEDS ORDERED: MAG HYDROX/AL HYDROX/SIMETH 30 ML UDC PO PRN (18:30)
[2018-07-25] MEDS ORDERED: ONDANSETRON HCL/PF 4 MG/2 ML VIAL IVP PRN (18:30)
[2018-07-25] MEDS ORDERED: ACETAMINOPHEN 325 MG TABLET PO PRN (18:30)
[2018-07-25] MEDS ORDERED: HYDROCODONE/APAP 5/325MG 1 EACH TABLET PO PRN (19:00)
[2018-07-25] MEDS ORDERED: ZOLPIDEM TARTRATE 10 MG TABLET PO PRN (19:00)
[2018-07-25 20:00] VITALS: BP 118/68
[2018-07-25 20:25] VITALS: BP 118/68
[2018-07-25] MEDS: HYDROCODONE/APAP 5/325MG 1 EACH TABLET PO PRN (20:30)
[2018-07-25] MEDS: IV 1/2NS 1000 ML 1,000 ML IV PRN (20:32)
[2018-07-25] MEDS: ATORVASTATIN 40 MG TABLET PO SCH (21:43)
[2018-07-25] MEDS: ZOLPIDEM TARTRATE 5 MG TABLET PO PRN (21:43)
[2018-07-25] MEDS: DOCUSATE SODIUM 100 MG CAPSULE PO SCH (21:43)
[2018-07-26] VITALS (8 sets, daily range): BP systolic 106–128; BP diastolic 57–82
[2018-07-26] MEDS: HYDROCODONE/APAP 5/325MG 1 EACH TABLET PO PRN ×2 (04:31→13:57)
[2018-07-26 06:53] LABS: BASOPHILS # (AUTO) 0.1 /CMM (0.0-0.2); BASOPHILS % (AUTO) 0.7 % (0.0-2.0); EOSINOPHILS % (AUTO) 2.8 % (0.0-6.0); HEMATOCRIT 33 % (33-45); HEMOGLOBIN 10.6 g/dL (11.5-14.8); LYMPHOCYTES # (AUTO) 1.7 /CMM (0.8-4.8); LYMPHOCYTES % (AUTO) 21.1 % (20.0-44.0); MEAN CORPUSCULAR HGB CONC 32 g/dl (31.0-36.0); MEAN CORPUSCULAR VOLUME 86 fL (82-100); MONOCYTES # (AUTO) 0.6 /CMM (0.1-1.30); MONOCYTES % (AUTO) 7.5 % (2.0-12.0); NEUTROPHILS # (AUTO) 5.4 /CMM (1.8-8.9); NEUTROPHILS % (AUTO) 67.9 % (43.0-81.0); PLATELET COUNT (AUTO) 419 /CMM (150-450); RDW COEFFICIENT OF VARIATION 13.9 (11.5-15.0); RED BLOOD CELL COUNT(AUTO) 3.82 MIL/uL (4.0-5.2)
[2018-07-26 07:19] LABS: CALCIUM, SERUM 9.4 mg/dL (8.5-10.1); CREATININE 0.7 mg/dL (0.6-1.3); MAGNESIUM 2.2 mg/dL (1.8-2.4); PHOSPHORUS 4.1 mg/dL (2.5-4.9); POTASSIUM 3.7 mmol/L (3.5-5.1)
[2018-07-26] MEDS: VALSARTAN 80 MG TABLET PO SCH (08:10)
[2018-07-26] MEDS: FLUOXETINE HCL 20 MG CAPSULE PO SCH (08:11)
[2018-07-26] MEDS: HYDROCHLOROTHIAZIDE 25 MG TABLET PO SCH (08:11)
[2018-07-26] MEDS: IV 1/2NS 1000 ML 1,000 ML IV PRN (10:02)
[2018-07-26] MEDS ORDERED: BACITRACIN 50000 UNITS/VIAL ONE (10:56)
[2018-07-26] MEDS ORDERED: FENTANYL PF 100MCG/2ML AMPUL ONE ×2 (11:26→12:50)
[2018-07-26] MEDS ORDERED: TRANEXAMIC ACID 3,000 MG in SODIUM CHLORIDE IRRIG SOLUTION 70 ML IR ONE (11:30)
[2018-07-26] MEDS ORDERED: BISACODYL SUPP (10 MG) 10 MG/SUPP.RECT SUPP.RECT RC PRN (13:00)
[2018-07-26] MEDS ORDERED: SENNOSIDES 8.6 MG TABLET PO PRN (13:00)
[2018-07-26] MEDS ORDERED: HYDROMORPHONE INJ 2 MG/ML DISP.SYRIN ONE (13:07)
[2018-07-26] MEDS ORDERED: MIDAZOLAM HCL 2 MG/2ML VIAL ONE (13:26)
[2018-07-26] MEDS ORDERED: MORPHINE SULFATE INJ 4 MG/ML DISP.SYRIN ONE (13:27)
[2018-07-26] MEDS: MORPHINE SULFATE INJ 4 MG/ML DISP.SYRIN IV PRN ×4 (15:33→22:32)
[2018-07-26] MEDS: CEFAZOLIN SODIUM 1 GM in IV SODIUM CHLORIDE 0.9% 50 ML IV SCH (21:02)
[2018-07-26] MEDS: ATORVASTATIN 40 MG TABLET PO SCH (21:02)
[2018-07-26] MEDS: DOCUSATE SODIUM 100 MG CAPSULE PO SCH (21:03)
[2018-07-26] MEDS: ZOLPIDEM TARTRATE 5 MG TABLET PO PRN (21:06)
[2018-07-27] MEDS: MORPHINE SULFATE INJ 4 MG/ML DISP.SYRIN IV PRN ×3 (02:16→10:03)
[2018-07-27] MEDS: IV 1/2NS 1000 ML 1,000 ML IV PRN (02:17)
[2018-07-27] MEDS: CEFAZOLIN SODIUM 1 GM in IV SODIUM CHLORIDE 0.9% 50 ML IV SCH (05:21)
[2018-07-27 08:00] VITALS: BP 118/57
[2018-07-27] MEDS: HYDROCHLOROTHIAZIDE 25 MG TABLET PO SCH (08:28)
[2018-07-27] MEDS: VALSARTAN 80 MG TABLET PO SCH (08:28)
[2018-07-27] MEDS: FLUOXETINE HCL 20 MG CAPSULE PO SCH (08:29)
[2018-07-27 09:00] VITALS: BP 118/57
[2018-07-27] MEDS: HYDROCODONE/APAP 5/325MG 1 EACH TABLET PO PRN ×2 (14:09→20:34)
[2018-07-27] MEDS: TRAMADOL HCL 50 MG TABLET PO PRN ×2 (17:05→23:12)
[2018-07-27] MEDS: RIVAROXABAN 10 MG TABLET PO SCH (17:06)
[2018-07-27 20:00] VITALS: BP 118/64
[2018-07-27] MEDS: ATORVASTATIN 40 MG TABLET PO SCH (21:56)
[2018-07-27] MEDS: ZOLPIDEM TARTRATE 5 MG TABLET PO PRN (21:57)
[2018-07-27] MEDS: DOCUSATE SODIUM 100 MG CAPSULE PO SCH (21:57)
[2018-07-28 08:00] VITALS: BP 125/75
[2018-07-28] MEDS: HYDROCODONE/APAP 5/325MG 1 EACH TABLET PO PRN ×2 (09:00→21:16)
[2018-07-28] MEDS: FLUOXETINE HCL 20 MG CAPSULE PO SCH (09:01)
[2018-07-28] MEDS: HYDROCHLOROTHIAZIDE 25 MG TABLET PO SCH (09:01)
[2018-07-28] MEDS: VALSARTAN 80 MG TABLET PO SCH (09:01)
[2018-07-28 16:00] VITALS: BP 107/62
[2018-07-28] MEDS: RIVAROXABAN 10 MG TABLET PO SCH (16:28)
[2018-07-28 20:00] VITALS: BP 108/63
[2018-07-28] MEDS: DOCUSATE SODIUM 100 MG CAPSULE PO SCH (21:16)
[2018-07-28] MEDS: ATORVASTATIN 40 MG TABLET PO SCH (21:17)
[2018-07-28] MEDS: ZOLPIDEM TARTRATE 5 MG TABLET PO PRN (21:54)
[2018-07-29] MEDS: HYDROCODONE/APAP 5/325MG 1 EACH TABLET PO PRN ×4 (05:24→19:27)
[2018-07-29 08:00] VITALS: BP 134/81
[2018-07-29] MEDS: VALSARTAN 80 MG TABLET PO SCH (09:17)
[2018-07-29] MEDS: FLUOXETINE HCL 20 MG CAPSULE PO SCH (09:17)
[2018-07-29] MEDS: HYDROCHLOROTHIAZIDE 25 MG TABLET PO SCH (09:18)
[2018-07-29 16:00] VITALS: BP 119/68
[2018-07-29] MEDS: RIVAROXABAN 10 MG TABLET PO SCH (17:02)
[2018-07-29 20:00] VITALS: BP 114/66
[2018-07-29] MEDS: DOCUSATE SODIUM 100 MG CAPSULE PO SCH (21:30)
[2018-07-29] MEDS: ATORVASTATIN 40 MG TABLET PO SCH (21:30)
[2018-07-29] MEDS: ZOLPIDEM TARTRATE 5 MG TABLET PO PRN (22:29)
[2018-07-30 08:00] VITALS: BP 126/79
[2018-07-30] MEDS: FLUOXETINE HCL 20 MG CAPSULE PO SCH (08:55)
[2018-07-30] MEDS: VALSARTAN 80 MG TABLET PO SCH (08:55)
[2018-07-30] MEDS: HYDROCHLOROTHIAZIDE 25 MG TABLET PO SCH (08:58)
[2018-07-30] MEDS: HYDROCODONE/APAP 5/325MG 1 EACH TABLET PO PRN ×3 (15:09→17:15)
[2018-07-30 16:00] VITALS: BP 139/75
[2018-07-30] MEDS: RIVAROXABAN 10 MG TABLET PO SCH (16:48)
[2018-07-30] MEDS ORDERED: HOME MED MISCELLANEOUS XX SCH (21:00)
[2018-07-30] MEDS ORDERED: LATUDA 20 MG PO SCH (22:00)
== END 2018-07-30 18:06 | disposition home health service (06) | DRG 467 ==
LOC: ER 15:55 → MED 17:38
PROVIDERS: ADMIT Internal Medicine; ATTEND Internal Medicine
PROC: 0SUE09Z Supplement Left Hip Joint, Acetabular Surface with Liner, Open Approach (ICD-10-PCS; principal; 2018-07-26 15:25)
PROC: 0SCB0ZZ Extirpation of Matter from Left Hip Joint, Open Approach (ICD-10-PCS; principal; 2018-07-26 15:25)
PROC: 0SPB09Z Removal of Liner from Left Hip Joint, Open Approach (ICD-10-PCS; principal; 2018-07-26 15:25)
DX: T84.021A Dislocation of internal left hip prosthesis, initial encounter (principal); M96.840 Postprocedural hematoma of a musculoskeletal structure following a musculoskeletal system procedure; E78.5 Hyperlipidemia, unspecified; I10 Essential (primary) hypertension; Y83.9 Surgical procedure, unspecified as the cause of abnormal reaction of the patient, or of later complication, without mention of misadventure at the time of the procedure; Y92.238 Other place in hospital as the place of occurrence of the external cause; M19.90 Unspecified osteoarthritis, unspecified site; Z96.651 Presence of right artificial knee joint; F32.9 Major depressive disorder, single episode, unspecified
CPT/HCPCS: 36415; 71045-TC; 80048-TC; 80061-TC; 83735-TC; 84100-TC; 85025-TC; 85730-TC; 87081-TC; 88300-TC; 88302-TC; 97110-TC; 97116-TC; 97530-TC; A4216; A4217; A4606; G0378; J0690; J1100; J1170; J1885; J2001; J2250; J2270; J2405; J2704; J3010; J3490; J7030; Q2036; Z7610